=== PATIENT | female | born 1990 | race African-American/Black ===

== ENCOUNTER 2022-09-02 18:11 | Emergency (ER) | payer OTHER ==
[~2022-09-02] VITALS: Ht 167.6 cm; Wt 56.0 kg
[2022-09-02 18:28] VITALS: BP 135/88
== END 2022-09-03 00:12 | disposition left against medical advice (07) ==
LOC: ER 18:11
DX: Z53.21 Procedure and treatment not carried out due to patient leaving prior to being seen by health care provider (principal)